=== PATIENT | male | born 1945 | race Caucasian/White ===

== ENCOUNTER → 2019-11-02 | Outpatient (CLI) | payer MEDICARE, OTHER ==
[~2019-11-02] MED LIST: CRESTOR5 MG PO
--- NOTE | 2019-11-02 13:58 | RAD ---
CT HEAD WO CONTRAST Date: 11/02/2019 12:00 AM Clinical Indication: Headache Comparison: None. Technique: 5 mm axial tomographic images were obtained of the head without contrast. These were viewed on brain and bone windows. One or more of the following dose reduction techniques were utilized: Automated exposure control (AEC), Adjustment of mA and/or kV according to patient size, Use of iterative reconstruction technique such as ASiR, CT scan done according to ALARA and image gently/image wisely Findings: Mild nonspecific periventricular hypoattenuation, most commonly seen with chronic small vessel ischemic disease. No intra- or extra-axial mass or fluid collection. No acute hemorrhage. The ventricles are normal in size, shape, and morphology. The nevarez-white matter junction is normal. The subarachnoid cisterns are patent. The visualized paranasal sinuses are normal. The visualized portions of the orbits and globes are normal. The mastoid air cells are clear. The procedure tech topogram shows no lytic lesion or fracture. Impression: No acute intracranial process. Mild chronic small vessel ischemic disease. Electronically signed by: Shaji Avilez MD (11/02/2019 1:55 PM) [id number]
--- NOTE | 2019-11-02 14:05 | RAD ---
Chest, PA and Lateral: Technique: PA and lateral views of the chest were obtained. History: Cough. Comparison: None. Findings: The heart size grossly appears unremarkable. Faint bibasilar lung airspace opacities likely atelectasis or infiltrates IMPRESSION: 1. Faint bibasilar lung airspace opacities likely atelectasis or infiltrates. Electronically signed by: Toney Chatterjee MD (11/02/2019 2:02 PM) [id number]
[2019-11-02 14:07] LABS: BASO % 0 % (0-3); EOS # 0.1 x10^3/uL (0.0-0.7); EOS % 1 % (0-3); HEMATOCRIT 43.7 % (39.0-53.0); HEMOGLOBIN 14.8 g/dL (13.0-17.5); LYMPH # 1.4 x10^3/uL (1.0-4.8); LYMPH % 14 % (24-48); MEAN CORPUSCULAR HEMOGLOBIN 32 pg (25-35); MEAN CORPUSCULAR HGB CONC 34 g/dL (31-37); MEAN CORPUSCULAR VOLUME 94 fL (79-100); MONO # 0.6 x10^3/uL (0.0-1.1); MONO % 6 % (0-9); NEUT # 7.4 x10^3uL (1.8-7.7); NEUT % 79 % (31-73); PLATELET COUNT 276 x10^3/uL (140-400); RED BLOOD COUNT 4.63 x10^6/uL (4.30-5.70); RED CELL DISTRIBUTION WIDTH 14.1 % (11.5-14.5); WHITE BLOOD COUNT 9.4 x10^3/uL (4.0-11.0)
[2019-11-02 14:39] LABS: BACTERIA,URINE 0 /HPF (0-FEW); BILIRUBIN,URINE NEG (NEG); CLARITY,URINE CLEAR; COLOR,URINE YELLOW; GLUCOSE,URINE NEG (NEG); NITRITE,URINE NEG (NEG); SQUAMOUS EPITHELIAL CELL,UR FEW /LPF; UROBILINOGEN,URINE 0.2 mg/dL (0.2 mg/dL); WBC,URINE OCC /HPF (0-4)
[2019-11-03 14:59] LABS: FREE T4 1.18 ng/dL (0.76-1.46)
[2019-11-03 15:00] LABS: THYROID STIM HORMONE (TSH) 1.89 uIU/mL (0.358-3.740)
== END | disposition home or self-care (01) ==
LOC: CT 13:24
PROVIDERS: ATTEND Family Medicine
DX: I25.89 Other forms of chronic ischemic heart disease (principal)
CPT/HCPCS: 36415; 70450; 71046; 81001; 84439; 84443; 85025; 87086

== ENCOUNTER → 2021-09-26 | Outpatient (CLI) | payer MEDICARE, OTHER ==
--- NOTE | 2021-09-26 17:15 | RAD ---
EXAM: Neck sonogram. HISTORY: Palpable lump. TECHNIQUE: Sonographic imaging of the right submandibular region at the site of palpable concern was performed. COMPARISON: None. FINDINGS: There is a 9 mm hypoechoic lesion with posterior through transmission and a thin internal s eptation demonstrating blood flow within the right submandibular location at the site of palpable con cern. This appears to be within the right submandibular gland. No additional lesion is seen. IMPRESSION: 9 mm suspected cystic lesion with internal septation demonstrating blood flow within the right submandibular gland at the site of palpable concern. The possibility of a cystic neoplasm is no t excluded. Short-term sonographic follow-up or follow-up with a contrast-enhanced MRI or CT is recom mended. Electronically signed by: Rita Silva MD (09/26/2021 5:13 PM) [id number]
== END ==
LOC: US 15:03
PROVIDERS: ATTEND Family Medicine
DX: L04.0 Acute lymphadenitis of face, head and neck (principal)
CPT/HCPCS: 76536